=== PATIENT | female | born 1965 | race Caucasian/White ===

== ENCOUNTER 2017-07-29 07:58 | Day surgery (SDC) | payer BC, SELFPAY ==
[2017-07-26 17:02] VITALS: BP 144/82
[2017-07-26 17:03] LABS: BASOPHILS % (AUTO) 0.5 % (0.0-5.0); EOSINOPHILS % (AUTO) 2.7 % (0.0-8.0); HEMATOCRIT 40.5 % (36-48); LYMPHOCYTES % (AUTO) 26.4 % (21.0-51.0); MEAN CORPUSCULAR HEMOGLOBIN 31.7 pg (27.0-33.0); MEAN CORPUSCULAR VOLUME 90.8 fL (79-99); MONOCYTES % (AUTO) 5.8 % (3.0-13.0); NEUTROPHILS % (AUTO) 64.6 % (40.0-77.0); PLATELET COUNT (AUTO) 264 K/uL (130-400); RED BLOOD CELL COUNT(AUTO) 4.46 MIL/uL (4.00-5.50); RED CELL DISTRIBUTION WIDTH 13.3 % (11.0-15.5); WHITE BLOOD COUNT (AUTO) 7.6 K/uL (4.8-10.8)
[2017-07-26 17:05] LABS: APPEARANCE,URINE Clear (CLEAR); BILIRUBIN,URINE Negative (NEGATIVE); COLOR,URINE Yellow (YELLOW); GLUCOSE, URINE (UA) Negative (NEGATIVE); KETONES,URINE Trace mg/dL (NEGATIVE); LEUKOCYTE ESTERASE ,URINE Small (NEGATIVE); NITRATE,URINE Negative (NEGATIVE); OCCULT BLOOD,URINE Negative (NEGATIVE); PH,URINE 7.5 (5.0-8.0); PROTEIN,URINE Negative (NEGATIVE)
[2017-07-26 17:18] LABS: CREATININE 0.8 mg/dL (0.5-1.5); POTASSIUM 4.1 mmol/L (3.5-5.1)
[2017-07-26 17:43] LABS: AMORPHOUS SEDIMENT,UR Few /LPF (None Seen); BACTERIA,URINE Few /HPF (None Seen); RBC,URINE 0-1 /HPF (0-1); SQUAMOUS EPITHELIAL CELL,UR Rare /HPF (0-2)
[~2017-07-29] VITALS: Ht 172.7 cm; Wt 79.6 kg
[2017-07-29] VITALS (18 sets, daily range): BP systolic 104–178; BP diastolic 70–100
[2017-07-29] MEDS ORDERED: ISOVUE-370 50ML VIAL IV ONE (08:21)
[2017-07-29] MEDS ORDERED: LACTATED RINGERS 1000ML 1,000 ML IV ONE (09:24)
[2017-07-29] MEDS ORDERED: GENTAMICIN 80 MG/NS 100 ML PB 100 ML IV ONE (09:24)
[2017-07-29] MEDS ORDERED: TAMS-1 PO (10:11)
[2017-07-29] MEDS: CEFTRIAXONE SODIUM 1 GM ONE ×2 (10:13→11:05)
[2017-07-29] MEDS ORDERED: PROPOFOL 10 MG/ML 20ML VIAL IV ONE (10:51)
[2017-07-29] MEDS ORDERED: LIDOCAINE PF 2% 5ML ABBOJECT ONE (10:51)
[2017-07-29] MEDS ORDERED: DEXAMETHASONE SOD PHOSPHATE 10MG/ML 1ML VIAL ONE (10:51)
[2017-07-29] MEDS ORDERED: FENTANYL CITRATE PF 50 MCG/1 ML 2ML VIAL ONE ×2 (10:52→11:14)
[2017-07-29] MEDS ORDERED: MIDAZOLAM HCL 1 MG/ML 2ML VIAL ONE (10:55)
[2017-07-29] MEDS ORDERED: HYDRALAZINE HCL 20 MG/ML VIAL ONE (12:38)
[2017-07-29] MEDS ORDERED: LABETALOL HCL 5 MG/ML 20ML VIAL IV ONE (12:59)
== END 2017-07-29 14:30 | disposition home or self-care (01) ==
LOC: DAH 07:58
PROVIDERS: ATTEND Urology
DX: N13.2 Hydronephrosis with renal and ureteral calculous obstruction (principal); Z88.0 Allergy status to penicillin
CPT/HCPCS: 36415; 52356; 76000; 80048; 81001; 85025; 87088; 88300; 93005; A4358; A4600; A6207; C1758; C1769; C1894; C2617; J0360; J0696; J1100; J1580; J2001; J2250; J2704; J3010 ×2; J3490; J7120 ×2; Q9967

== ENCOUNTER 2017-08-07 00:13 | Observation (INO) | payer BC, OTHER, SELFPAY ==
[2017-08-07] VITALS (14 sets, daily range): BP systolic 97–133; BP diastolic 64–81
[~2017-08-07] VITALS: Ht 172.7 cm; Wt 78.9 kg
[~2017-08-07 00:13] MED LIST: TAMS-1 PO
[2017-08-07 00:41] LABS: APPEARANCE,URINE Clear (CLEAR); BILIRUBIN,URINE Negative (NEGATIVE); COLOR,URINE Yellow (YELLOW); GLUCOSE, URINE (UA) Negative (NEGATIVE); KETONES,URINE Negative (NEGATIVE); LEUKOCYTE ESTERASE ,URINE Moderate (NEGATIVE); NITRATE,URINE Negative (NEGATIVE); OCCULT BLOOD,URINE Large (NEGATIVE); PROTEIN,URINE Negative (NEGATIVE); UROBILINOGEN,URINE 0.2 mg/dL (0.2-1.0)
[2017-08-07 00:55] LABS: BACTERIA,URINE Rare /HPF (None Seen); MUCUS,URINE Few LPF (None Seen); SQUAMOUS EPITHELIAL CELL,UR None Seen /HPF (0-2)
[2017-08-07] MEDS ORDERED: SODIUM CHLORIDE 0.9% 1000ML 1,000 ML IV ONE (00:55)
[2017-08-07] MEDS ORDERED: KETOROLAC TROMETHAMINE 15MG/ML ONE (00:55)
[2017-08-07 01:37] LABS: BASOPHILS % (AUTO) 0.4 % (0.0-5.0); EOSINOPHILS % (AUTO) 2.5 % (0.0-8.0); HEMATOCRIT 36.8 % (36-48); LYMPHOCYTES % (AUTO) 14.5 % (21.0-51.0); MEAN CORPUSCULAR HGB CONC 34.4 g/dL (32.0-36.0); MEAN CORPUSCULAR VOLUME 90.2 fL (79-99); MONOCYTES % (AUTO) 8.6 % (3.0-13.0); NUCLEATED RED BLOOD CELLS 0.1 % (0.0-0.19); PLATELET COUNT (AUTO) 261 K/uL (130-400); RED BLOOD CELL COUNT(AUTO) 4.08 MIL/uL (4.00-5.50); RED CELL DISTRIBUTION WIDTH 13.3 % (11.0-15.5); WHITE BLOOD COUNT (AUTO) 10.1 K/uL (4.8-10.8)
[2017-08-07 01:40] LABS: CREATININE 0.9 mg/dL (0.5-1.5); POTASSIUM 3.7 mmol/L (3.5-5.1)
[2017-08-07 01:44] LABS: ALBUMIN 3.3 g/dL (3.5-5.0); BILIRUBIN,TOTAL 0.5 mg/dL (0.2-1.0); TOTAL PROTEIN, SERUM 6.7 g/dL (6.0-8.3)
[2017-08-07] MEDS ORDERED: CEFTRIAXONE SODIUM 1 GM ONE (04:05)
[2017-08-07] MEDS ORDERED: MORPHINE SULFATE 4 MG/1ML SYG ONE (05:38)
[2017-08-07] MEDS ORDERED: POTASSIUM CHLORIDE 20 MEQ ERTAB PO PRN (07:00)
[2017-08-07] MEDS ORDERED: LEVOFLOXACIN 500 MG/D5W 100 ML 100 ML IV SCH (07:00)
[2017-08-07] MEDS ORDERED: LIDOCAINE HCL-MPF 1% 2ML VIAL IVP PRN (07:00)
[2017-08-07] MEDS ORDERED: POTASSIUM CHLORIDE 20MEQ/100ML 100 ML IV PRN (07:00)
[2017-08-07] MEDS ORDERED: PHARMACY COMMUNICATION MISC SCH (07:00)
[2017-08-07] MEDS ORDERED: POTASSIUM CHLORIDE 10% ELIXIR 20 MEQ/15 ML UDCUP PO PRN (07:00)
[2017-08-07] MEDS ORDERED: DiphenhydrAMINE HCL 50 MG/ML VIAL IV PRN (07:00)
[2017-08-07] MEDS ORDERED: ONDANSETRON HCL MDV 20ML 2 MG/ML VIAL IVP PRN (07:15)
[2017-08-07] MEDS ORDERED: MORPHINE SULFATE 4 MG/1ML SYG IVP PRN (07:15)
[2017-08-07] MEDS: LEVOFLOXACIN 500 MG/D5W 100 ML 100 ML IV SCH (09:05)
[2017-08-07] MEDS: FAMOTIDINE/PF 20 MG/2 ML VIAL IV SCH ×2 (09:20→20:20)
[2017-08-07] MEDS ORDERED: HYDROMORPHONE 1 MG/1 ML AMP IVP PRN (11:45)
[2017-08-07 14:00] LABS: INR 0.98 (0.85-1.15); PARTIAL THROMBOPLASTIN TIME 29.2 SEC (26.3-35.5); PROTHROMBIN TIME 10.3 SEC (9.6-11.6)
[2017-08-07] MEDS ORDERED: ONDANSETRON HCL 4 MG/2 ML VIAL ONE (14:11)
[2017-08-07] MEDS ORDERED: LIDOCAINE HCL 1% MDV 50ML VIAL ONE (14:12)
[2017-08-07] MEDS ORDERED: ISOVUE-300 100 ML VIAL IV ONE (14:16)
[2017-08-07] MEDS ORDERED: FENTANYL CITRATE PF 50 MCG/1 ML 2ML VIAL ONE (14:22)
[2017-08-07] MEDS: SODIUM CHLORIDE 0.9% 1000ML 1,000 ML IV SCH ×3 (16:31→23:37)
[2017-08-07] MEDS: KETOROLAC TROMETHAMINE 15MG/ML IV PRN (20:21)
[2017-08-08] MEDS: KETOROLAC TROMETHAMINE 15MG/ML IV PRN ×2 (02:11→08:18)
[2017-08-08 02:20] VITALS: BP 132/80
[2017-08-08] MEDS: SODIUM CHLORIDE 0.9% 1000ML 1,000 ML IV SCH (06:31)
[2017-08-08 06:53] LABS: HEMATOCRIT 34.2 % (36-48); MEAN CORPUSCULAR HEMOGLOBIN 32.2 pg (27.0-33.0); MEAN CORPUSCULAR HGB CONC 35.7 g/dL (32.0-36.0); MEAN CORPUSCULAR VOLUME 90.3 fL (79-99); PLATELET COUNT (AUTO) 210 K/uL (130-400); RED BLOOD CELL COUNT(AUTO) 3.78 MIL/uL (4.00-5.50); RED CELL DISTRIBUTION WIDTH 13.1 % (11.0-15.5)
[2017-08-08 07:04] LABS: CREATININE 0.8 mg/dL (0.5-1.5)
[2017-08-08 07:43] VITALS: BP 132/90
[2017-08-08] MEDS: FAMOTIDINE/PF 20 MG/2 ML VIAL IV SCH (08:08)
[2017-08-08] MEDS: LEVOFLOXACIN 500 MG/D5W 100 ML 100 ML IV SCH (08:08)
[2017-08-08] MEDS ORDERED: TAMSULOSIN HCL 0.4 MG CAP.ER.24H PO SCH (09:00)
[2017-08-08 11:32] VITALS: BP 127/86
== END 2017-08-08 12:20 | disposition home or self-care (01) ==
LOC: EDH 00:13 → EDHIP 03:56 → WSH 06:25
PROVIDERS: ADMIT Family Medicine; ATTEND Family Medicine
DX: N13.2 Hydronephrosis with renal and ureteral calculous obstruction (principal); Z88.0 Allergy status to penicillin; Z87.442 Personal history of urinary calculi
CPT/HCPCS: 10030; 36415 ×2; 50432; 74176; 80048; 80053; 81001; 83605; 83735; 85025; 85027; 85610; 85730; 87040 ×2; 87088; 87186; 96365; 96366; 96375; 96376 ×2; 99285; C1729; C1894; G0378 ×32; J0696; J1170; J1885 ×4; J1956 ×2; J2270; J2405; J3010; J3490 ×4; J7030; Q9967

== ENCOUNTER 2017-08-20 20:46 | Emergency (ER) | payer BC ==
[2017-08-20 21:33] LABS: APPEARANCE,URINE Clear (CLEAR); BILIRUBIN,URINE Negative (NEGATIVE); COLOR,URINE Yellow (YELLOW); GLUCOSE, URINE (UA) Negative (NEGATIVE); KETONES,URINE Negative (NEGATIVE); LEUKOCYTE ESTERASE ,URINE Small (NEGATIVE); NITRATE,URINE Negative (NEGATIVE); OCCULT BLOOD,URINE Moderate (NEGATIVE); PROTEIN,URINE Negative (NEGATIVE); UROBILINOGEN,URINE 0.2 mg/dL (0.2-1.0)
[2017-08-20 21:41] LABS: BACTERIA,URINE Rare /HPF (None Seen); RBC,URINE 0-1 /HPF (0-1); SQUAMOUS EPITHELIAL CELL,UR Rare /HPF (0-2)
== END 2017-08-20 23:40 | disposition home or self-care (01) ==
LOC: EDH 20:46
DX: T83.092A Other mechanical complication of nephrostomy catheter, initial encounter (principal); Z87.442 Personal history of urinary calculi; Z88.2 Allergy status to sulfonamides
CPT/HCPCS: 74018; 81001